=== PATIENT | male | born 1950 | race American Indian/Alaskan Native ===

== ENCOUNTER 2019-09-06 14:48 | Emergency (ER) | payer MEDICARE ==
[2019-09-06 15:33] LABS: INR 1.58 (0.87-1.13); Partial Thromboplastin Time 35.8 Sec. (24.2-36.6)
--- NOTE | 2019-09-06 15:41 | Emergency Department Report ---
ED Neuro Deficit HPI - General Chief Complaint: Altered Mental Status Stated Complaint: NEURO ISSUES Time Seen by Provider: 09/06/19 15:24 Source: family, EMS Mode of arrival: Stretcher Limitations: Physical Limitation - History of Present Illness Initial Comments: [facility] Date of Service: 09/06/2019 15:14:19 Impression: RO Acute Ischemic Stroke Comments: acute onset decreased LOC, right facial twitching, and right sided weakness - seizure favored over stroke. Recommend loading with keppra 1500 mg IV x 1 and keppra 750 mg bid. Recommend CTA head/neck and perfusion. ?L SDH on CT head - formal read is pending. On exam, he has continuous right facial twitching with a right gaze preference. Mechanism of Stroke: Possible Thromboembolic Possible Cardioembolic Small Vessel Disease Metrics: Last Known Well: 09/03/2019 12:00:00 [employer] Notification Time: 09/06/2019 15:12:45 Arrival Time: 09/06/2019 14:53:00 Stamp Time: 09/06/2019 15:14:19 Time First Login Attempt: 09/06/2019 15:18:48 Video Start Time: 09/06/2019 15:18:48 Symptoms: L facial droop and decreased LOC. NIHSS Start Assessment Time: 09/06/2019 15:30:27 Patient is not a candidate for tPA. Patient was not deemed candidate for tPA thrombolytics because of Last Well Known Above 4.5 Hours. Video End Time: 09/06/2019 15:37:12 CT head was reviewed. Advanced imaging CTA head and neck obtained. Advanced imaging CTP obtained. ER physician notified of the decision on thrombolytics management. Our recommendations are outlined below. Recommendations: Hold Antithrombotics for Now Recommended Scan: MRI Head Lipid Panel to Be Obtained, if Not Done in the Last Three Months Therapies: Physical Therapy, Occupational Therapy, Speech Therapy Assessment When Applicable Dysphaghia Screen: Swallow Evaluation, Bedside NPO Until Swallow Evaluation DVT prophylaxis: Lovenox or LMW Heparin Disposition: Follow up with Teleneurology Follow up Sign Out: Discussed with Emergency Department Provider History of Present Illness: Patient is a 68 years old Male. Patient was brought by EMS for symptoms of L facial droop and decreased LOC. 68 yo man who has been off his BP meds for the past week. At baseline, he speaks normally, but he walks with a walker. He was discharged in rehab for 1 month for weakness from deconditioning. Yesterday, his mother noted that he was not walking well yesterday with generalized weakness. He went to an OSH yesterday and was sent home. This am, he was noted at 0900 to be less responsive with right side weakness; however, his mother notes that he was having trouble moving the left leg for the since 09/03/19. He takes no blood thinners. CT head was reviewed. Examination: 1A: Level of Consciousness - Movements to Pain + 2 1B: Ask Month and Age - Could Not Answer Either Question Correctly + 2 1C: Blink Eyes & Squeeze Hands - Performs 0 Tasks + 2 2: Test Horizontal Extraocular Movements - Partial Gaze Palsy: Can Be Overcome + 1 3: Test Visual English - No Visual Loss + 0 4: Test Facial Palsy (Use Grimace if Obtunded) - Minor paralysis (flat nasolabial fold, smile asymetry) + 1 5A: Test Left Arm Motor Drift - No Effort Against [place] + 3 5B: Test Right Arm Motor Drift - No Movement + 4 6A: Test Left Leg Motor Drift - No Effort Against [place] + 3 6B: Test Right Leg Motor Drift - No Movement + 4 7: Test Limb Ataxia (FNF/Heel-[place]zon) - No Ataxia + 0 8: Test Sensation - Normal; No sensory loss + 0 9: Test Language/Aphasia - Coma/Unresponsive + 3 10: Test Dysarthria - Mute/Anarthric + 2 11: Test Extinction/Inattention - No abnormality + 0 NIHSS Score: 27 Patient was informed the Neurology Consult would happen via TeleHealth consult by way of interactive audio and video telecommunications and consented to receiving care in this manner. Due to the immediate potential for life-threatening deterioration due to underlying acute neurologic illness, I spent 35 minutes providing critical care. This time includes time for face to face visit via telemedicine, review of medical records, imaging studies and discussion of findings with providers, the patient and/or family. Dr Willard [facility] - Related Data Home Medications: Previous Rx's Medication Instructions Recorded Last Taken Type EPINEPHrine (NF) [Epipen (Nf)] 0.3 mg IM ONCE #1 syringekit 01/25/15 Unknown Rx diphenhydrAMINE [Benadryl] 25 mg PO Q6HR PRN #20 capsule 01/25/15 Unknown Rx predniSONE [Deltasone] 20 mg PO QDAY #5 tab 01/25/15 Unknown Rx Allergies/Adverse Reactions: Allergies Allergy/AdvReac Type Severity Reaction Status Date / Time ciprofloxacin [From Cipro] Allergy Rash Verified 01/25/15 10:19 ciprofloxacin HCl Allergy Rash Verified 01/25/15 10:19 [From Cipro] Sulfa (Sulfonamide Allergy Rash Verified 01/25/15 10:19 Antibiotics) ED Review of Systems ROS: Stated complaint: NEURO ISSUES Other details as noted in HPI ED Past Medical Hx - Past Medical History Hx Hypertension: No Hx CVA: No Hx GERD: Yes Hx HIV: Yes Additional medical history: Gastroesophageal reflux disease - Surgical History Additional Surgical History: HERNIA REPAIR - Social History Smoking Status: Never Smoker Substance Use Type: Alcohol - Medications Home Medications: Home Medications Medication Instructions Recorded Confirmed Last Taken Type EPINEPHrine (NF) [Epipen (Nf)] 0.3 mg IM ONCE #1 syringekit 01/25/15 Unknown Rx diphenhydrAMINE [Benadryl] 25 mg PO Q6HR PRN #20 capsule 01/25/15 Unknown Rx predniSONE [Deltasone] 20 mg PO QDAY #5 tab 01/25/15 Unknown Rx ED Neuro Physical Exam - General Limitations: Physical Limitation Suspected Stroke: Yes - NIHSS Assessment Interval: Baseline 1a. Level of Consciousness: coma/unresponsive 1b. LOC Questions: answers no questions correctly 1c. LOC Commands: performs no tasks correctly 2. Best Gaze: partial gaze palsy 3. Visual: no visual loss 4. Facial Palsy: minor paralysis 5b. Motor Arm Right: no movement 5a. Motor Arm Left: no gravity effort 6a. Motor Leg Left: no movement 6b. Motor Leg Right: no gravity effort 7. Limb Ataxia: absent 8. Sensory: normal 9. Best Language: mute/global aphasia 10. Dysarthria: severe dysarthria 11. Extinction/Inattention: no abnormality Total Score: 28 Stroke Severity: Severe Stroke - Lab Data Result diagrams: 09/06/19 15:14 Lab Results 09/06/19 09/06/19 09/06/19 Range/Units 15:13 15:13 15:14 [place] % (Auto) 12.8 H (0.0-7.3) % Eos % (Auto) 1.9 (0.0-4.3) % [place] # 0.5 (0.0-0.8) K/mm3 Eos # 0.1 (0.0-0.4) K/mm3 Baso # 0.0 (0.0-0.1) K/mm3 Seg Neutrophils % 52.4 (40.0-70.0) % Seg Neutrophils # 2.1 (1.8-7.7) K/mm3 PT 18.5 H (12.2-14.9) Sec. INR 1.58 H (0.87-1.13) APTT 35.8 (24.2-36.6) Sec. Thrombin Time 16.8 (15.1-19.6) Sec. Critical care attestation.: If time is entered above; I have spent that time in minutes in the direct care of this critically ill patient, excluding procedure time. ED Disposition Clinical Impression: Seizure Disposition: OP ADMIT IP TO THIS HOSP Is pt being admited?: Yes Condition: Stable Referrals: PRIMARY CARE, [Primary Care Provider] - 3-5 Days
[2019-09-06 15:42] LABS: BUN/Creatinine Ratio 14; Blood Urea Nitrogen 23 mg/dL (9-20); Calcium 8.1 mg/dL (8.4-10.2); Hemolysis Index 6
[2019-09-06] MEDS ORDERED: KEPPRA 1,000 MG/NS 0.75% 100ML 1,000 MG/100 ML BAG IV ONE ×2 (15:45→16:34)
[2019-09-06] MEDS ORDERED: ATIVAN IV ONE (15:47)
--- NOTE | 2019-09-06 15:47 | Cat Scan Report ---
CT HEAD WITHOUT CONTRAST INDICATION / CLINICAL INFORMATION: MAIN: CODE STROKE CALL [phone]. TECHNIQUE: Axial imaging performed from the skull apex through the skull base without the use of cont rast. Sagittal and coronal reformatted images. All CT scans at this location are performed using CT dose reduction for ALARA by means of automated exposure control. COMPARISON: None available. FINDINGS: CEREBRAL PARENCHYMA: No significant abnormality. No acute territorial infarct. HEMORRHAGE: No intraparenchymal hemorrhage. A mixed density left subdural hemorrhage, see below. EXTRA-AXIAL SPACES: A mixed density left subdural collection is identified in the left frontal and pa rietal regions measuring up to 1 cm in thickness which appears to represent an acute on subacute left subdural hemorrhage. There is mild mass effect on the left cerebral hemisphere. VENTRICULAR SYSTEM: Normal in size and morphology for the patient's age. MIDLINE SHIFT OR HERNIATION: 5 mm left to right midline shift at the level of the frontal horns. CEREBELLUM / BRAINSTEM: No significant abnormality. CALVARIUM: No significant abnormality. ORBITS: Normal as visualized. PARANASAL SINUSES / MASTOID AIR CELLS: Normal as visualized. SOFT TISSUES of HEAD: No significant abnormality. ADDITIONAL FINDINGS: None. IMPRESSION: Mixed density left subdural collection most suggestive of a acute on subacute left subdural hemorrhag e. no evidence for intraparenchymal hemorrhage or large area of acute ischemia on noncontrast CT. These findings were discussed with Dr. Manuel in the emergency department at 1540 hours. Signer Name: Izaiah Manning Jr, MD Signed: 09/06/2019 3:43 PM Workstation Name: [id number]
[2019-09-06] MEDS ORDERED: ATIVAN IV PRN (15:49)
[2019-09-06] MEDS ORDERED: VASELINE LIP THERAPY TP PRN (15:49)
[2019-09-06] MEDS ORDERED: ARTIFICIAL TEARS OPHTH OINT OU PRN (15:49)
[2019-09-06] MEDS ORDERED: ATIVAN 100 MG in NACL 0.9% 50 ML, VIAFLEX EMPTY CONTAINER 0 ML IV SCH (16:00)
[2019-09-06 16:17] LABS: Hematocrit 36.4 % (35.5-45.6); Hemoglobin 11.6 gm/dl (11.8-15.2); Red Blood Count 4.16 M/mm3 (3.65-5.03)
[2019-09-06 16:18] LABS: Mean Corpuscular HGB Conc 32 % (32-34); Mean Corpuscular Volume 87 fl (84-94); Platelet Count 44 K/mm3 (140-440); Red Cell Distribution Width 16.7 % (13.2-15.2)
--- NOTE | 2019-09-06 16:37 | Emergency Department Report ---
ED General Adult HPI - General Chief complaint: Altered Mental Status Stated complaint: NEURO ISSUES Time Seen by Provider: 09/06/19 15:24 Source: family, EMS Mode of arrival: Stretcher Limitations: Physical Limitation - History of Present Illness Initial comments: Patient presents to the emergency department via EMS with his for tremors that started at 11 AM today. The states that this morning the patient woke up and was okay after being treated at another medical facility last night. The patient is not able to cooperate with exam due to his medical condition at the time of presentation. denies the patient taking any antiplatelet or anticoagulation medications. There has been no head trauma. -: Sudden Improves with: none Worsens with: none Associated Symptoms: denies other symptoms Treatments Prior to Arrival: none - Related Data Previous Rx's Medication Instructions Recorded Last Taken Type EPINEPHrine (NF) [Epipen (Nf)] 0.3 mg IM ONCE #1 syringekit 01/25/15 Unknown Rx diphenhydrAMINE [Benadryl] 25 mg PO Q6HR PRN #20 capsule 01/25/15 Unknown Rx predniSONE [Deltasone] 20 mg PO QDAY #5 tab 01/25/15 Unknown Rx Allergies Allergy/AdvReac Type Severity Reaction Status Date / Time ciprofloxacin [From Cipro] Allergy Rash Verified 01/25/15 10:19 ciprofloxacin HCl Allergy Rash Verified 01/25/15 10:19 [From Cipro] Sulfa (Sulfonamide Allergy Rash Verified 01/25/15 10:19 Antibiotics) ED Review of Systems ROS: Stated complaint: NEURO ISSUES Other details as noted in HPI Comment: Unobtainable due to pts medical conditions ED Past Medical Hx - Past Medical History Hx Hypertension: No Hx CVA: No Hx GERD: Yes Hx HIV: Yes Additional medical history: Gastroesophageal reflux disease - Surgical History Additional Surgical History: HERNIA REPAIR - Social History Smoking Status: Never Smoker Substance Use Type: Alcohol - Medications Home Medications: Home Medications Medication Instructions Recorded Confirmed Last Taken Type EPINEPHrine (NF) [Epipen (Nf)] 0.3 mg IM ONCE #1 syringekit 01/25/15 Unknown Rx diphenhydrAMINE [Benadryl] 25 mg PO Q6HR PRN #20 capsule 01/25/15 Unknown Rx predniSONE [Deltasone] 20 mg PO QDAY #5 tab 01/25/15 Unknown Rx ED Physical Exam - General Limitations: Physical Limitation General appearance: obtunded - Head Head exam: Present: atraumatic - Eye Eye exam: Present: PERRL - ENT ENT exam: Present: mucous membranes dry - Neck Neck exam: Present: normal inspection - Respiratory Respiratory exam: Present: normal lung sounds bilaterally. Absent: respiratory distress - Cardiovascular Cardiovascular Exam: Present: normal rhythm, tachycardia - GI/Abdominal GI/Abdominal exam: Present: soft, normal bowel sounds. Absent: distended, tenderness - Back Exam Back exam: Present: normal inspection - Neurological Exam Neurological exam: Present: other (GCS 7 Eye: 2 Verbal:3 Motor: 2 no gag reflex; decerebrate posturing ) - Psychiatric Psychiatric exam: Present: other (not able to assess due to the patient's condition) - Skin Skin exam: Present: warm, dry, intact, normal color. Absent: rash ED Course Vital Signs 09/06/19 09/06/19 09/06/19 15:15 15:33 15:46 Pulse Rate 96 H 109 H 111 H Respiratory 21 19 34 H Rate Blood Pressure 180/96 186/110 173/100 09/06/19 09/06/19 09/06/19 16:00 16:15 16:30 Pulse Rate 113 H 116 H 120 H Respiratory 19 11 L 15 Rate Blood Pressure 158/115 163/114 187/123 09/06/19 16:45 Pulse Rate 117 H Respiratory 13 Rate Blood Pressure 195/128 - Intubation Time Out Performed: Yes Sedative: Etomidate Paralytic: Rocuronium Laryngoscope: fiberoptic video scope Size: 3 ET Tube Size: 7.5 Tube Secured Depth (cm): 24 Tube Secured Location: lips Tube Placement Confirmation: visualized tube passing t Patient Tolerated Procedure: well Intubation Complications: none Additional Comments: Initial intubation was done via direct visualization initially to no avail Patient was bagged via BVM sats increased to 100% glide scope used for intubation ED Medical Decision Making - Lab Data Result diagrams: 09/06/19 15:14 09/06/19 15:14 Lab Results 09/06/19 09/06/19 09/06/19 Range/Units 15:13 15:13 15:14 WBC 3.7 L (4.5-11.0) K/mm3 RBC 4.16 (3.65-5.03) M/mm3 Hgb 11.6 L (11.8-15.2) gm/dl Hct 36.4 (35.5-45.6) % MCV 87 (84-94) fl MCH 28 (28-32) pg MCHC 32 (32-34) % RDW 16.7 H (13.2-15.2) % Plt Count 44 L (140-440) K/mm3 Lymph % (Auto) Not Reportable [place] % (Auto) Animal Control Supervisor Eos % (Auto) Animal Control Supervisor Baso % (Auto) Animal Control Supervisor Lymph # Not Reportable [place] # Animal Control Supervisor Eos # Animal Control Supervisor Baso # Animal Control Supervisor Seg Neutrophils % Animal Control Supervisor Seg Neutrophils # Animal Control Supervisor PT 18.5 H (12.2-14.9) Sec. INR 1.58 H (0.87-1.13) APTT 35.8 (24.2-36.6) Sec. Thrombin Time 16.8 (15.1-19.6) Sec. Sodium (137-145) mmol/L Potassium (3.6-5.0) mmol/L Chloride (98-107) mmol/L Carbon Dioxide (22-30) mmol/L Anion Gap mmol/L BUN (9-20) mg/dL Creatinine (0.8-1.5) mg/dL Estimated GFR ml/min BUN/Creatinine Ratio % Glucose (75-100) mg/dL Calcium (8.4-10.2) mg/dL Troponin T (0.00-0.029) ng/mL 09/06/19 Range/Units 15:14 WBC (4.5-11.0) K/mm3 RBC (3.65-5.03) M/mm3 Hgb (11.8-15.2) gm/dl Hct (35.5-45.6) % MCV (84-94) fl MCH (28-32) pg MCHC (32-34) % RDW (13.2-15.2) % Plt Count (140-440) K/mm3 Lymph % (Auto) [place] % (Auto) Eos % (Auto) Baso % (Auto) Lymph # [place] # Eos # Baso # Seg Neutrophils % Seg Neutrophils # PT (12.2-14.9) Sec. INR (0.87-1.13) APTT (24.2-36.6) Sec. Thrombin Time (15.1-19.6) Sec. Sodium 133 L (137-145) mmol/L Potassium 3.7 (3.6-5.0) mmol/L Chloride 100.9 (98-107) mmol/L Carbon Dioxide 22 (22-30) mmol/L Anion Gap 14 mmol/L BUN 23 H (9-20) mg/dL Creatinine 1.6 H (0.8-1.5) mg/dL Estimated GFR 52 ml/min BUN/Creatinine Ratio 14 % Glucose 114 H (75-100) mg/dL Calcium 8.1 L (8.4-10.2) mg/dL Troponin T < 0.010 (0.00-0.029) ng/mL - Radiology Data Radiology results: report reviewed - Medical Decision Making Spoke with Dr. bradford at the 16:00 and the patient was discussed in detail Dr. Chambers asked for the patient to receive another gram of Keppra IV, 10 of vitamin K IV, and DDAVP via IV Cardiac drip was initiated Critical Care Time: Yes Critical care time in (mins) excluding proc time.: 45 Critical care attestation.: If time is entered above; I have spent that time in minutes in the direct care of this critically ill patient, excluding procedure time. ED Disposition Clinical Impression: Subdural hematoma, Seizure, Respiratory failure Disposition: [id number]/TX-[id number] ANOTHER TYPE HLTHCARE Is pt being admited?: No Condition: Stable Referrals: PRIMARY CARE, [Referring] - 3-5 Days
[2019-09-06] MEDS ORDERED: NACL 0.9% 500 ML 500 ML IV ONE (16:47)
[2019-09-06] MEDS ORDERED: VITAMIN K (ADULT ONLY) 10 MG in NACL 0.9% 50 ML IV ONE (17:00)
[2019-09-06] MEDS ORDERED: NACL 0.9% IV ONE (17:00)
[2019-09-06] MEDS ORDERED: CARDENE 50 MG in NACL 0.9% 250ML 230 ML IV SCH (17:00)
[2019-09-06] MEDS ORDERED: DDAVP IV ONE (17:00)
[2019-09-06] MEDS ORDERED: NACL 0.9% 1000 ML 1,000 ML ONE (17:37)
--- NOTE | 2019-09-06 17:49 | XRay Report ---
CHEST 1 VIEW INDICATION / CLINICAL INFORMATION: ETT placement. COMPARISON: None available. FINDINGS: SUPPORT DEVICES: Dialysis catheter is in place on the right. NG tube is seen extending into the regio n of the stomach. Endotracheal tube has been placed appearing to be in adequate position above the ca karthik. HEART / MEDIASTINUM: Moderately enlarged LUNGS / PLEURA: There is mild to moderate basilar lung consolidation without significant effusion. Up per lungs are clear. No pneumothorax. ADDITIONAL FINDINGS: No significant additional findings. IMPRESSION: 1 Endotracheal tube appears to be in adequate position. Signer Name: Keon Bingham MD Signed: 09/06/2019 5:45 PM Workstation Name: [id number]
[2019-09-06 18:15] VITALS: BP 160/108
[2019-09-06 18:50] LABS: Anisocytosis 1+; Eosinophils % (Manual) 0 % (0.0-4.3); Platelet Estimate Consistent w Auto; Total Cells Counted 100
[2019-09-06] MEDS ORDERED: AMIDATE IV ONE (21:48)
[2019-09-06] MEDS ORDERED: ZEMURON IV ONE (21:48)
== END 2019-09-06 19:09 | disposition other institution (70) ==
LOC: ED 14:48
DX: S06.5X9A Traumatic subdural hemorrhage with loss of consciousness of unspecified duration, initial encounter (principal); J96.90 Respiratory failure, unspecified, unspecified whether with hypoxia or hypercapnia; K21.9 Gastro-esophageal reflux disease without esophagitis; R56.9 Unspecified convulsions; Z88.1 Allergy status to other antibiotic agents; Z88.2 Allergy status to sulfonamides; Z79.899 Other long term (current) drug therapy; Z21 Asymptomatic human immunodeficiency virus [HIV] infection status; Z98.890 Other specified postprocedural states; X58.XXXA Exposure to other specified factors, initial encounter; Y93.89 Activity, other specified; Y92.89 Other specified places as the place of occurrence of the external cause; Y99.8 Other external cause status
CPT/HCPCS: 31500; 36415; 36430; 51702; 70450; 71045; 80048; 82803; 84484; 85007; 85025; 85610; 85670; 85730; 86850; 86900; 86901; 96365; 96367; 96368; 96375; 99291; J1953; J2060; J3430; J7030; J7050; 94002; J2597